=== PATIENT | female | born 1945 | race Caucasian/White ===

== ENCOUNTER 2016-05-09 15:02 | Inpatient (IN) | payer MEDICARE ==
[~2016-05-09] VITALS: Ht 149.9 cm; Wt 67.9 kg
[2016-05-09] VITALS (14 sets, daily range): BP systolic 117–142; BP diastolic 59–77; PULSE 90–104; RESP 16–33; TEMP 98.4; O2SAT 100; Ht 149.9 cm; Wt 67.9 kg
[~2016-05-09 15:02] MED LIST: CHOL200026 PO; LISI1TAB11 PO; PRAV40TA3 PO
--- OUTSIDE RECORDS SUMMARY | 2016-05-09 15:06 | XMS REPORT | Continuity of Care Document ---
Author Author [facility] Organization [facility] Address Unknown Phone Unavailable Support Name Relationship Address Phone FRANK ASKEW MD Caregiver [address] [facility] [address] [place] [address] Unavailable PAT HERRERA APRN Caregiver [address] [place] [address] Unavailable ASYA DUNN Next Of Kin [address] [place] [id number] C Insurance Providers Guarantor Kelli Dunn Address [address] [place] [id number] C Email DENIED/NO TO PORTAL Payer Medicare Policy Number [id number] Subscriber's Name Kelli Dunn Relationship 18 Self Advance Directives Directive Response Recorded Date/Time Dr Ordered Resuscitation Status Full Code 12/31/15 6:30am Resuscitation Documents on File No 12/31/15 7:24am DPOA for Healthcare Only No 12/31/15 7:24am Living Will No 12/31/15 7:24am Problems No problem information available. Medications Current Home Medications Medication Dose Units Route Directions Days Qty Instructions Start Date Cholecalciferol (Vitamin D3) (Vitamin D-3) 2,000 Unit Capsule 1 Cap Oral Daily 12/28/15 Lisinopril/Hydrochlorothiazide (Lisinopril-Hctz 20-12.5 Mg Tab) 1 Each Tablet 1 Tab Oral Daily 90 12/28/15 Pravastatin Sodium 40 Mg Tablet 1 Tab Oral Bedtime 90 12/28/15 Social History Social History Problem Response Recorded Date/Time Onset Date Status Reason for Hospitalization EGD/COLONOSCOPY 12/31/2015 9:10am Not Applicable Not Applicable Chewing Tobacco Status No 12/31/2015 7:29am Not Applicable Not Applicable Hx Substance Use No 12/31/2015 7:29am Not Applicable Not Applicable Has the pt used tobacco in the last 12 months No 12/31/2015 7:29am Not Applicable Not Applicable Query Response Start Date Stop Date Smoking Status Never smoker Hospital Discharge Instructions Instructions: Care Instructions: I was in the hospital because (patient own words): EGD AND COLONOSCOPY Discharge Diet: You may resume your usual diet. Discharge Activity: You may resume your usual activity. Follow Up Appointments: No specific follow-up appointment with Dr. Askew is necessary. You can call his office for any questions or concerns. Pending Lab / Results: Will be notified Patient Instructions: Do not drive, operate machinery, drink alcohol, or sign important papers for 24 hours. Expected Signs/Symptoms: You may have some gas discomfort. Notify Physician If: Contact Dr. Askew if you have a fever over 101 degrees, severe abdominal pain, or severe rectal bleeding. During Business Hours:: During office hours, call Dr. Askew's office at [phone]. After Business Hours:: After hours, please call [facility] at [phone] and have the primer press operator page Dr. Askew the covering physician. Pain Management/Treatment: You should not have significant pain following the procedure. Wound/Incision Care: No wound care required. Condition at time of discharge: Good Plan of Care Discharge Date 12/31/15 9:42am Instructions/Education Provided [facility] Prescriptions See Medication Section Functional Status No functional status results. Allergies, Adverse Reactions, Alerts Allergen Type Severity Reaction Status Last Updated Penicillin Allergy Unknown RASH Active 12/31/15 Morphine Allergy Unknown RASH Active 12/31/15 Codeine Allergy Unknown HALLUCINATIONS Active 12/31/15 Immunizations Query Response on File Recorded Date/Time Hx Influenza Vaccination Y 10/201512/31/15 7:29am Hx Pneumococcal Vaccination Y 201412/31/15 7:29am Hx Influenza Vaccination Y 10/201512/31/15 7:29am Vital Signs Acute Vital Signs Vital Response Date/Time Temperature (Fahrenheit) 97.0 deg F (96.8 - 99.1) 12/31/2015 8:57am Temperature (Calculated Celsius) 36.44829 degrees C (36.0 - 37.3) 12/31/2015 8:57am Temperature Source Temporal 12/31/2015 8:57am Pulse Rate (adult) 72 bpm (60 - 100) 12/31/2015 9:40am Respiratory Rate 22 breaths/min (10 - 20) 12/31/2015 9:40am O2 Sat by Pulse Oximetry 98 % (90 - 100) 12/31/2015 9:40am Oxygen Delivery Method Room Air 12/31/2015 9:40am Oxygen Flow Rate 2.00 L/min 12/31/2015 8:57am Blood Pressure 98/56 mm Hg 12/31/2015 9:40am Blood Pressure Source Automatic Cuff 12/31/2015 9:40am Height (Feet) 4 feet 12/31/2015 7:01am Height (Inches) 11.00 inches 12/31/2015 7:01am Weight (Kilograms) 65.100 kg 12/31/2015 7:01am Body Mass Index (BMI) 29.0 12/31/2015 7:01am Results No known relevant diagnostic tests, laboratory data and/or discharge summary. Procedures Procedure Status Date Provider(s) COMP SCREEN MAMMOGRAM ADD-ON Completed 10/17/15 BREAST TOMOSYNTHESIS BI Completed 10/17/15 [id number]"SCREENING MAMMOGRAPHY, PRODUCING DIRECT DIGITAL IMAGE Completed Colonoscopy Completed 12/31/15 FRANK ASKEW MD Esophagogastroduodenoscopy (EGD) with closed biopsy Completed 12/31/15 FRANK ASKEW MD Encounters Encounter Location Arrival/Admit Date Discharge/Depart Date Attending Provider Departed Surgical Day Care [facility] 12/31/15 6:51am 12/31/15 9: 42am FRANK ASKEW MD Registered Clinic [facility] 10/17/15 8:01am IRLANDA STYLES
[2016-05-09] MEDS ORDERED: CHOL100018 PO (15:20)
[2016-05-09] MEDS ORDERED: FERR-70 PO (15:21)
[2016-05-09] MEDS ORDERED: LACT1CAP80 PO (15:21)
[2016-05-09 15:39] LABS: BASOPHILS % (AUTO) 0.2 % (0-2); EOSINOPHILS # (AUTO) 0.1 T/MM3 (0-0.5); EOSINOPHILS % (AUTO) 0.5 % (0-4); HCT - HEMATOCRIT 20.4 % (36-46); HGB - HEMOGLOBIN 6.4 GM/DL (12-16); IMMATURE GRANULOCYTE # (AUTO) 0.03 T/MM3 (0.00-0.03); IMMATURE GRANULOCYTE % (AUTO) 0.3 % (0.0-0.5); LYMPHOCYTES # (AUTO) 2.2 T/MM3 (1-4.8); LYMPHOCYTES % (AUTO) 19.7 % (23-45); MEAN CORPUSCULAR HGB 28.1 UUG (26-34); MEAN CORPUSCULAR HGB CONC(MCHC 31.4 GM/DL (31-37); MEAN CORPUSCULAR VOLUME 89.5 UM3 (80-100); MEAN PLATELET VOLUME 9.1 UM3 (9.4-12.4); MONOCYTES # (AUTO) 0.4 T/MM3 (0-0.8); NEUTROPHILS #(AUTO)-ABSOLUTE 8.2 T/MM3 (1.8-7.7); NEUTROPHILS % (AUTO) 75.3 % (33-66); RED BLOOD COUNT 2.28 M/MM3 (4.00-5.20); WBC - WHITE BLOOD COUNT 10.9 T/MM3 (4.5-11.0)
[2016-05-09] MEDS ORDERED: NORMAL SALINE 500 ML IV SCH (15:43)
--- NOTE | 2016-05-09 15:49 | ERPDOC ---
Departure Disposition Decision Date: May 09, 2016 Disposition Decision Time: 17:08 Disposition: 02 TO [facility] Impression Impression Impression: Primary Impression: GI bleed Condition: Critical Seen By: Mid-level only Referrals: PAT HERRERA APRN (Family) Problems/Meds/Labs Reviewed?: Yes Medications reviewed and manag: Yes Follow up care ordered?: Yes (admit) Mental Status: Alert, Oriented Critical Care Note Total Time (mins): 15 Critical Care Spent: [id number]-hp-coqh care of pt, Reviewing test results, Discuss the case w/staff, Discussion w/ family/DPOA During this visit the pt was: Critically Ill HPI - Abdominal Pain General Chief Complaint: Nausea,Vomiting,Diarrhea Stated Complaint: VOMITING,DIARRHEA,WEAKNESS Time Seen by Provider: 15:34 Source: patient History/Exam Limitations: no limitations HPI - Abdominal Pain Initial Comments Kelli is a 70 year old female who developed dark diarrhea stools last week with some accompanying stomach cramping. Patient volunteers at preschool and feels like symptoms were consistent with a viral illness. She did have a couple episodes of vomiting at that time. Today, patient redeveloped diarrhea with black stools and vomiting coffee-ground emesis last episode 20 minutes prior to presentation emergency room. Daughter brought patient to the emergency room by private vehicle after going over to her house and finding her to be very pale and weak. Patient underwent colonoscopy and EGD 12/31/[address] Malik [facility]. Findings showed gastritis and esophagitis. Patient was started on omeprazole which she took for 1-2 months but felt like it was causing some looser stools and she discontinued it. Additionally patient has been on iron supplementation but stopped 1 week ago when the stools were noticed to be black. Patient has a history of anemia indicating hemoglobin prior to those scopes was around 11. Patient denies any abdominal pain. Complains of feeling tired and wiped out. Occurred At: home Onset: Getting worse Duration: 1 week Pain Scale: Now: 0/10 Activities at Onset: none Associated Symptoms: fatigue, nausea/vomiting Hx of Similar Symptoms: No Allergies: Coded Allergies: Penicillins (Verified Allergy, Unknown, RASH, 05/09/16) codeine (Verified Allergy, Unknown, HALLUCINATIONS, 05/09/16) morphine (Verified Allergy, Unknown, RASH, 05/09/16) Past History Past Medical History Metabolic: hypertension GI: GERD, gallbladder disease Hematologic: anemia Psychological: anxiety Surgical History General: EGD, appendix, colonoscopy, gallbladder Joint: knee (rt meniscus) Family History Family PMH: FOUND: hypertension Vaccines Hx Influenza Vaccination: Yes (10/2015) Hx Pneumococcal Vaccination: Yes (2014) Social History Smoking Status: Never smoker Does patient use chewing tobac: No Second Hand Exposure: No Substance Use Type: does not use Alcohol Intake: occasionally Marital Status: Household Members: spouse Current Occupational Status: employed Current Occupation: preschool helper Review of Systems Constitutional Constitutional: fatigue, weakness, DENIES: fever ENMT Sinuses: DENIES: congestion Mouth/Throat: DENIES: sore throat Cardiovascular Cardiac: dyspnea on exertion, DENIES: chest pain Pulmonary Respiratory: DENIES: cough GI Upper Abdomen: hematemesis, vomiting, DENIES: pain Lower Abdomen: diarrhea, melena, DENIES: pain General: DENIES: dysuria Musculoskeletal General: DENIES: pain Integumentary Skin: DENIES: rash Neurological General: weakness Psychiatric Psychiatric: anxiety Hematologic/Lymphatic Hematologic/Lymphatic: anemia All other Systems All Other Systems: Reviewed and Negative Physical Exam General General Nourishment: well nourished, well developed, appears stated age, acute distress Vitals and Pain First Documented Vital Signs Date Time Temp Pulse Resp B/P Pulse Ox O2 Delivery O2 Flow Rate FiO2 05/09/16 15:25 98.7 125 20 136/61 100 Room Air Weight: Kilograms: 66.600 Height (feet): 4 Height (inches): 11.00 Triage Pain Scale: Eyes (brief) Eyes Brief: found: PERRL, not found: scleral icterus ENMT (brief) ENMT Brief: FOUND: TM clear, mucosa moist, NOT FOUND: nasal exudate Neck (brief) Neck: FOUND: trachea midline Respiratory (brief) Respiratory: FOUND: clear all vicente, equal bilaterally Cardiovascular (brief) Cardiac: FOUND: murmur, other (tachycardia), peripheral edema (trace) Pulses: all distal extremities Abdomen (brief) Abdominal Brief: FOUND: bowel normo active x4, soft, NOT FOUND: tender Lymphatic (brief) Lymphatic Brief: NOT FOUND: lymphedema Integumentary (brief) Integumentary Brief: FOUND: dry, warm, NOT FOUND: pink (pale), rash Psychiatric (brief) Psychiatric Brief: FOUND: alert, attentive, normal affect, oriented Progress Results/Orders Orders Procedure Category Date Status Time Cbc W/Auto LAB 05/09/16 Complete Diff-Reflex Manual Bmp - Basic Metabolic LAB 05/09/16 Complete Panel 15:43 PTT LAB 05/09/16 Complete 15:43 INR LAB 05/09/16 Complete 15:43 Iv Lock (Ed Only) EDM 05/09/16 Transmitted 15:43 Consent For Procedure JADEN 05/09/16 In Process 15:43 Teach: Transfusion [facility] 05/09/16 In Process Education 15:43 Normal Saline (Ns) PHA 05/09/16 In Process 15:43 Give Packed Cell BBK 05/09/16 Logged 15:43 Packed Cells BBK 05/09/16 In Process Leukoreduced 15:27 Type And Screen BBK 05/09/16 In Process 15:27 Pantoprazole PHA 05/09/16 Complete (Protonix Iv) 16:30 Lab Results Laboratory Tests Test 05/09/16 15:23 White Blood Count 10.9T/MM3 Red Blood Count 2.28M/MM3 Hemoglobin 6.4GM/DL Hematocrit 20.4% Mean Corpuscular Volume 89.5UM3 Mean Corpuscular Hemoglobin 28.1UUG Mean Corpuscular Hemoglobin Concent 31.4GM/DL RDW Standard Deviation 43.8FL Platelet Count 561T/MM3 Mean Platelet Volume 9.1UM3 Immature Granulocyte % (Auto) 0.3% Neutrophils (%) (Auto) 75.3% Lymphocytes (%) (Auto) 19.7% Monocytes (%) (Auto) 4.0% Eosinophils (%) (Auto) 0.5% Basophils (%) (Auto) 0.2% Absolute Immature Granulocyte (auto 0.03T/MM3 Absolute Neutrophils (auto) 8.2T/MM3 Absolute Lymphocytes (auto) 2.2T/MM3 Absolute Monocytes (auto) 0.4T/MM3 Absolute Eosinophils (auto) 0.1T/MM3 Absolute Basophils (auto) 0.0T/MM3 Prothromb Time International Ratio 1.21 Activated Partial Thromboplast Time 23.9SEC Turbidity < 20 Sodium Level 145MEQ/L Potassium Level 4.6MEQ/L Chloride Level 113MEQ/L Carbon Dioxide Level 19MEQ/L Anion Gap 13MEQ/L Blood Urea Nitrogen 42.0MG/DL Creatinine 0.9MG/DL Glomerular Filtration Rate Calc 62 BUN/Creatinine Ratio 47RATIO Glucose Level 200MG/DL Calculated Osmolality 296MOSM/KG Calcium Level 8.6MG/DL Icterus Index < 2 Chemistry Specimen Hemolysis < 15 Medications Current ED Medications Sodium Chloride (NS) 500 ml @ 0 mls/hr Q0M IV ; Start 05/09/16 at 15:43 Pantoprazole Sodium (Protonix Iv) 40 mg O ONCE IV Last administered on t 16:25; Start 05/09/16 at 16:30; Stop 05/09/16 at 16:31; Status DC Progress Progress Called Dr. Ruff regarding patient. Agrees to be consulted for patient if hospitalized Called Dr. Vail from hospitalist service on pt admit. Will admit CCU and consult Speedy Protonix 40 mg IV given in ER, 1 unit blood ordered-it is available in house Consult/PCP Consult/PCP : Physician Contacted: Yared Type of discussion: Admit Discussion/PCP Discussion Details admit ccu RENETTA CHAMBERLAIN APRN May 09, 2016 15:49
[2016-05-09 16:02] LABS: ANION GAP 13 MEQ/L (5-15); BUN/CREATININE RATIO 47 RATIO (6-26); CALCIUM 8.6 MG/DL (8.4-10.2); CHLORIDE 113 MEQ/L (98-107); CO2 - CARBON DIOXIDE 19 MEQ/L (22-30); CREATININE 0.9 MG/DL (0.7-1.2); GLOMERULAR FILTRATION RATE 62; GLUCOSE 200 MG/DL (65-110); POTASSIUM 4.6 MEQ/L (3.6-5); SODIUM 145 MEQ/L (134-144)
[2016-05-09 16:29] LABS: INR 1.21 (0.76-1.04); PROTHROMBIN TIME 13.2 SEC (9.31-12.49); PTT 23.9 SEC (24-36)
[2016-05-09] MEDS ORDERED: PANTOPRAZOLE 40mg INJECTION IV ONE ×2 (16:30→19:15)
[2016-05-09] MEDS ORDERED: NORMAL SALINE 1,000 ML IV ONE (17:00)
--- NOTE | 2016-05-09 17:04 | NUR ---
REPORT REPORT GIVEN TO STANFORD BELTRAN IN CCU
--- NOTE | 2016-05-09 17:14 | NUR ---
INFUSION INFUSION THERAPY AT BEDSIDE FOR IV START ATTEMPT
--- NOTE | 2016-05-09 17:30 | NUR ---
ADMIT PATIENT TAKEN TO CCU BED 1 BY CART, STABLE. BELONGINGS WITH PATIENT.
--- NOTE | 2016-05-09 17:30 | NUR ---
Admit: the patient is admitted to ccu-1. She is alert, oriented x3. She is pale, skin is cool. She states she is dizzy when up. The monitor technician show ST with a rate of 120's.
--- NOTE | 2016-05-09 18:00 | NUR ---
Infusion therapy: is here for midline placement in the right upper arm.
--- NOTE | 2016-05-09 18:18 | NUR ---
Blood #1: is started as ordered. Dr. Vail is at the bedside.
[2016-05-09] MEDS: NORMAL SALINE 1,000 ML IV SCH (18:39)
[2016-05-09] MEDS ORDERED: ONDANSETRON 4mg/2ml INJECTION IV PRN (18:45)
[2016-05-09] MEDS ORDERED: METOCLOPRAMIDE 10mg/2ml INJECTION IV PRN (18:45)
--- NOTE | 2016-05-09 18:45 | NUR ---
Output: 200 cc of clear yellow urine is voided per bedpan.
--- NOTE | 2016-05-09 19:58 | HPPDOC ---
HPI - Adult Date DATE: 05/09/16 TIME: 19:42 General Chief Complaint: severe weakness and black emesis and black stools History of Present Illness The patient is a pleasant 70-year-old female. Chest history of anemia and underwent an EGD and colonoscopy in December [address] Malik. H. pylori testing was negative. Hemoglobin at that time was 9.9. EGD biopsy showed mild chronic mucosal inflammation and reactive epithelial changes. No other abnormalities seen. On EGD there was distal esophagitis and mild antral gastritis colonoscopy was done and showed just a few diverticuli. The patient was placed on iron twice daily but did not take it twice daily because of GI upset. Approximately one week ago the patient had black emesis and black stool. She stopped her iron at that time. Today she noted she was feeling very weak and noticed that her heart was pounding. She then had a large amount of black emesis and black diarrhea. Her daughter encouraged her to come to the emergency room where she was found to have a hemoglobin of 6.4. Initial vitals revealed a heart rate of 125 and blood pressure 136/61. O2 sat was 100%. Dr. Vail was called and asked to admit for anemia and GI bleed. The patient was typed and crossed in the emergency room and given 500 cc of normal saline. She was given 40 mg of IV Protonix. The patient states that she felt weak and lightheaded today. She noticed her heart was racing. She was not having any specific abdominal pain. She states that for a long time she will have occasional cramping when she eats spicy foods or chocolate. When she has crampy abdominal pain she then has a bowel movement and symptoms are gone. She is noticing increased flatus. She has not had any weight changes. She occasionally takes ibuprofen maybe once a week for sinus headache. She is not on any blood thinners. She denies any chest pain or shortness of breath. She felt sweaty last night but otherwise denies any fevers , chills or sweats. States she has been anxious for a long period of time. She does feel anxious and is somewhat tearful tonight. Past Medical History Past Medical History Hypertension GERD anemia Anxiety Hyperlipidemia Torn meniscus right knee for which she has undergone steroid injections Surgical History Patient's Surgical History: EGD showing mild antral gastritis and distal esophagitis 12/31/[address] Malik Colonoscopy 12/31/2015 showing a few diverticuli, otherwise normal with Dr. Malik Appendectomy DANII/BSO Benign breast biopsy Current Medications Home Meds Reported Medications Lactobacillus Combo No.10 (Probiotic) 1 Each Capsule, 1 CAP PO DAILY Y for PRN ORDERS 05/09/16 Ferrous Sulfate (Ferrous Sulfate) 325 Mg Tablet, 325 MG PO BIDWM 05/09/16 Cholecalciferol (Vitamin D3) 1,000 Unit Tablet, 1000 UNIT PO DAILY 05/09/16 Pravastatin Sodium (Pravastatin Sodium) 40 Mg Tablet, 40 MG PO HS 12/28/15 Lisinopril/Hydrochlorothiazide (Lisinopril-Hctz 20-12.5 mg Tab) 1 Each Tablet, 1 TAB PO DAILY, #90 12/28/15 Allergies: Coded Allergies: Penicillins (Verified Allergy, Unknown, RASH, 05/09/16) codeine (Verified Allergy, Unknown, HALLUCINATIONS, 05/09/16) morphine (Verified Allergy, Unknown, RASH, 05/09/16) Family History Family History: Mom with lung cancer-she was a smoker Mother also had diabetes and hypertension. Social History Smoking Status: Never smoker Does patient use chewing tobac: No Second Hand Exposure: No Substance Use Type: does not use Alcohol Intake: occasionally Marital Status: Household Members: spouse Current Occupational Status: employed Current Occupation: preschool helper Advance Directives: No DPOA for Healthcare Only Review of Systems Unable to Obtain Comments Comprehensive review of systems is negative other than the above in history of present illness Physical Exam General Vital Signs Vital Signs Date Time Temp Pulse Resp B/P Pulse Ox O2 Delivery O2 Flow Rate FiO2 05/09/16 18:43 102 16 05/09/16 17:30 98.7 120/59 100 Room Air Height (Feet): 4 Height (Inches): 11.00 Comments Current vitals after receiving 500 cc of normal saline and receiving first unit of blood shows heart rate of 92, blood pressure 142/69, O2 sat about her percent on room air. GEN-alert, mildly anxious and a little tearful, otherwise no acute distress HEENT-sclera anicteric, oropharynx is moist NECK-supple CV-tachycardic rate with irregular rhythm, harsh systolic murmur CHEST-to auscultation from the anterior ABD-soft, nontender, nondistended with positive bowel sounds -no Beal EXT-no edema NEURO-alert and oriented 3, moves all 4 extremities without difficulty SKIN-warm and dry and without rashes Neurologic RN Documented GCS Eye Opening: Verbal: Motor: Total: Laboratory Laboratory Tests Test 05/09/16 15:23 White Blood Count 10.9T/MM3 Red Blood Count 2.28M/MM3 Hemoglobin 6.4GM/DL Hematocrit 20.4% Mean Corpuscular Volume 89.5UM3 Mean Corpuscular Hemoglobin 28.1UUG Mean Corpuscular Hemoglobin Concent 31.4GM/DL RDW Standard Deviation 43.8FL Platelet Count 561T/MM3 Mean Platelet Volume 9.1UM3 Immature Granulocyte % (Auto) 0.3% Neutrophils (%) (Auto) 75.3% Lymphocytes (%) (Auto) 19.7% Monocytes (%) (Auto) 4.0% Eosinophils (%) (Auto) 0.5% Basophils (%) (Auto) 0.2% Absolute Immature Granulocyte (auto 0.03T/MM3 Absolute Neutrophils (auto) 8.2T/MM3 Absolute Lymphocytes (auto) 2.2T/MM3 Absolute Monocytes (auto) 0.4T/MM3 Absolute Eosinophils (auto) 0.1T/MM3 Absolute Basophils (auto) 0.0T/MM3 Prothromb Time International Ratio 1.21 Activated Partial Thromboplast Time 23.9SEC Turbidity < 20 Sodium Level 145MEQ/L Potassium Level 4.6MEQ/L Chloride Level 113MEQ/L Carbon Dioxide Level 19MEQ/L Anion Gap 13MEQ/L Blood Urea Nitrogen 42.0MG/DL Creatinine 0.9MG/DL Glomerular Filtration Rate Calc 62 BUN/Creatinine Ratio 47RATIO Glucose Level 200MG/DL Calculated Osmolality 296MOSM/KG Calcium Level 8.6MG/DL Icterus Index < 2 Chemistry Specimen Hemolysis < 15 Assessment & Plan Assessment Impression Acute blood loss anemia-symptomatic with weakness, lightheadedness and tachycardia Probable upper GI bleed Hypernatremia Metabolic acidosis-mild History of hypertension History of gastritis and GERD Anxiety Plan Admit to CCU. Transfuse 2 units of blood. Stay 2 units ahead. IV fluids to run at 75 ML's an hour after blood is done Protonix 80 mg IV and start Protonix drip Nothing by mouth 2 IVs Hemoglobin every 6 hours to start after second unit of blood is done. Call hemoglobin less than 8.4 I did call and talk with Dr. Gonzalez and he plans for EGD tomorrow, likely in the morning. He can do it more emergently if needed. Preferably will get hemoglobin improved prior to EGD Check iron studies, B-12, folate and hemoglobin A1c SCDs for DVT prophylaxis Hold antihypertensives Greater than 75 minutes of critical care time spent seeing and evaluating the patient and performing H&P today. Patient requests full code. She does not have a DURABLE POWER OF SEISMOGRAPH CHIEF but would want her to be her alternate decision-maker. DVT Prophylaxis: SCD'S Code Status Full Code Hospital Course Summary Disclaimer The hospital course summary below is not to be considered part of the above Progress Note. MALATHI VAIL MD May 09, 2016 19:46
--- NOTE | 2016-05-09 20:46 | NUR ---
Protonix 1915 dose of IV Protonix not given due to dose already received in ED. RN contacted Dr. Willis, telehospitalist, for clarification. Per physician, do not give, just start protonix gtt as ordered.
[2016-05-09] MEDS ORDERED: PANTOPRAZOLE 40mg INJECTION IV SCH (21:00)
[2016-05-09] MEDS: PANTOPRAZOLE 80 MG in NORMAL SALINE 250 ML IV SCH (21:01)
--- NOTE | 2016-05-09 21:22 | NUR ---
Blood #2 2nd unit PRBCs started at this time. Pt educated on s/s of adverse reaction. Pt verbalizes understanding. RN remains at bedside for initial 15 minutes of transfusion. VSS.
[2016-05-10] VITALS (54 sets, daily range): BP systolic 120–164; BP diastolic 25–94; PULSE 69–98; RESP 13–36; TEMP 97.6–99.1; O2SAT 96–100
[2016-05-10 00:33] LABS: HGB - HEMOGLOBIN 8.4 GM/DL (12-16)
[2016-05-10] MEDS: NORMAL SALINE 1,000 ML IV SCH ×2 (00:45→06:01)
--- NOTE | 2016-05-10 01:10 | NUR ---
Labs Morning labs moved to 0600 to accommodate q6 Hgb.
[2016-05-10] MEDS: LORAZEPAM 2 MG/ML INJECTION IV PRN (05:31)
[2016-05-10] MEDS: PANTOPRAZOLE 80 MG in NORMAL SALINE 250 ML IV SCH ×2 (06:02→17:10)
[2016-05-10 06:12] LABS: BASOPHILS % (AUTO) 0.2 % (0-2); EOSINOPHILS # (AUTO) 0.1 T/MM3 (0-0.5); EOSINOPHILS % (AUTO) 0.8 % (0-4); HCT - HEMATOCRIT 23.9 % (36-46); HGB - HEMOGLOBIN 7.8 GM/DL (12-16); IMMATURE GRANULOCYTE # (AUTO) 0.02 T/MM3 (0.00-0.03); IMMATURE GRANULOCYTE % (AUTO) 0.2 % (0.0-0.5); LYMPHOCYTES # (AUTO) 2.5 T/MM3 (1-4.8); LYMPHOCYTES % (AUTO) 29.9 % (23-45); MEAN CORPUSCULAR HGB 29.1 UUG (26-34); MEAN CORPUSCULAR HGB CONC(MCHC 32.6 GM/DL (31-37); MEAN CORPUSCULAR VOLUME 89.2 UM3 (80-100); MEAN PLATELET VOLUME 8.8 UM3 (9.4-12.4); MONOCYTES # (AUTO) 0.6 T/MM3 (0-0.8); MONOCYTES % (AUTO) 7.2 % (0-9.0); NEUTROPHILS #(AUTO)-ABSOLUTE 5.2 T/MM3 (1.8-7.7); NEUTROPHILS % (AUTO) 61.7 % (33-66); RED BLOOD COUNT 2.68 M/MM3 (4.00-5.20); WBC - WHITE BLOOD COUNT 8.5 T/MM3 (4.5-11.0)
--- NOTE | 2016-05-10 06:20 | NUR ---
Hgb 7.8 Hgb reported to physician. No new orders.
[2016-05-10 06:23] LABS: ALBUMIN 2.9 G/DL (3.5-5.0); ALBUMIN/GLOBULIN RATIO 1.3 RATIO (1.1-2.2); ALKALINE PHOSPHATASE 52 U/L (38-126); ALT (SGPT) 29 U/L (9-52); ANION GAP 9 MEQ/L (5-15); AST (SGOT) 18 U/L (14-36); BUN/CREATININE RATIO 35 RATIO (6-26); CALCIUM 8.1 MG/DL (8.4-10.2); CHLORIDE 116 MEQ/L (98-107); CO2 - CARBON DIOXIDE 22 MEQ/L (22-30); CREATININE 0.8 MG/DL (0.7-1.2); GLOMERULAR FILTRATION RATE 71; GLUCOSE 97 MG/DL (65-110); POTASSIUM 3.6 MEQ/L (3.6-5); SODIUM 147 MEQ/L (134-144); TOTAL PROTEIN 5.2 G/DL (6.3-8.2)
--- NOTE | 2016-05-10 06:43 | NUR ---
Shift Summary Pt had difficulty sleeping during the night. Denied need for PRN ativan, however agreed to taking it this morning at 0530. Did not aid pt in getting any sleep. Anxious. NPO through night. Family already at bedside this morning. Pt A&Ox3 and appropriate. 2u PRBCs administered thus far. No visible signs of bleeding to note. VSS. Pt states she feels "much better" than yesterday afternoon.
[2016-05-10 07:40] LABS: HEMOGLOBIN A1C 5.4 % (6.1-7.9)
[2016-05-10] MEDS ORDERED: D5-1/2 NS KCL 20 MEQ 1,000 ML IV SCH (08:00)
--- NOTE | 2016-05-10 09:00 | NUR ---
STATUS Dozed briefly after ativan given earlier this am. Up to BR w/ assist. Steady on feet. AM cares provided. Family at bedside. Patient sleeping soundly now.
--- NOTE | 2016-05-10 10:58 | NUR ---
KIERA QURESHI VISITED PT. CM EXPLAINED ROLE AND PROVIDED CONTACT INFORMATION. 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 PT WILL CONSIDER [facility]. PT IS AWARE TO CONTACT CM IF NEEDS ARISE.
--- NOTE | 2016-05-10 11:35 | ANESPREOP ---
Anesthesia Record Date and Time DATE: 05/10/16 TIME: 11:32 Pre-Op Diagnosis GI bleed Proposed Surgical Procedure EGD NPO since: mn Allergies: Coded Allergies: Penicillins (Verified Allergy, Unknown, RASH, 05/09/16) codeine (Verified Allergy, Unknown, HALLUCINATIONS, 05/09/16) morphine (Verified Allergy, Unknown, RASH, 05/09/16) Ht/Wt/BMI Height: 4 ' 11.00 " Weight: 67.500 kg BMI: 29.4 kg/m2 Vital Signs Date Time Temp Pulse Resp B/P Pulse Ox O2 Delivery O2 Flow Rate FiO2 05/10/16 08:00 81 05/10/16 08:00 98.5 16 131/25 100 Room Air Medications Inpatient Medications Current Medications Medications (Trade) Dose Ordered Sig/Mady Start Time Stop Time Status Last Admin Dose Admin Sodium Chloride 500 ml @ 0 mls/hr Q0M 05/09/16 15:43 Sodium Chloride (Normal Saline IV) 1,000 ml @ 75 mls/hr [id number] 05/09/16 18:39 05/10/16 07:49 DC 05/10/16 06:01 75 MLS/HR Metoclopramide HCl (REGLAN Inj) 5 mg Q6H PRN 05/09/16 18:45 Ondansetron HCl (Zofran) 4 mg Q6H PRN 05/09/16 18:45 Pantoprazole Sodium 40 mg 40 mg BID 05/09/16 21:00 05/09/16 21:00 DC Pantoprazole Sodium/Sodium Chloride (Protonix Iv/NS) 250 ml @ 25 mls/hr Q10H 05/09/16 19:15 05/10/16 06:02 25 MLS/HR Lorazepam 0.25 mg 0.25 mg Q4H PRN 05/09/16 19:15 05/10/16 05:31 0.25 MG Potassium Chloride/Dextrose/ Sod Cl (D5-1/2 NS KCl 20 Meq) 1,000 ml @ 75 mls/hr [id number] 05/10/16 08:00 05/10/16 09:20 75 MLS/HR Cholecalciferol (Vitamin D3) 1,000 Unit Tablet, 1,000 UNIT PO DAILY, (Reported) Last Taken: on 05/07/16 Ferrous Sulfate (Ferrous Sulfate) 325 Mg Tablet, 325 MG PO BIDWM, (Reported) Last Taken: on 05/07/16 Lactobacillus Combo No.10 (Probiotic) 1 Each Capsule, 1 CAP PO DAILY PRN for PRN ORDERS, (Reported) Last Taken: on 05/07/16 Lisinopril/Hydrochlorothiazide (Lisinopril-Hctz 20- 12.5 mg Tab) 1 Each Tablet, 1 TAB PO DAILY, (Reported) Last Taken: on 05/07/16 Pravastatin Sodium (Pravastatin Sodium) 40 Mg Tablet, 40 MG PO HS, (Reported) Last Taken: on 05/07/16 Currently on Beta Emmanuel: No Medical/Surgical History Anesthesia PMH: Reports: *Hypertension, Anxiety, Hyperlipidemia, Reflux, Denies : *Diabetes, *[place], Anesthesia Reactions (NO AIRWAY ISSUES), Asthma, Blood Transfusion Reac, CHF, COPD, CVA/Stroke/TIA, Cancer, Deep Vein Thrombosis, Glaucoma, Malignant Hyperthermia, Pacemaker, Renal Disease, Seizures, Sleep Apnea Smoking Status: Never smoker Use Chewing Tobacco?: No Second Hand Exposure: No Substance Use Type: does not use Alcohol Intake: rarely Past Surgical History Orthopedic Surgeries: No Abdominal Surgeries: Yes - APPY,COLONOSCOPY, EGD Genitourinary Surgeries: No Cardiac Surgeries: No Endocrine Surgeries: No Reproductive Surgeries: Yes - HYST. Neurological Surgeries: No Ear Surgeries: No Nose Surgeries: No Throat Surgeries: No Other Surgeries: Yes - WISDOM TEETH AND ALL TEETH EXTRACTION Anesthesia Adverse Reactions: FOUND none Pertinent Findings Laboratory Tests 05/10/16 05:59 Test 05/09/16 15:23 Activated Partial Thromboplast Time 23.9SEC (24-36) Prothromb Time International Ratio 1.21 (0.76-1.04) EKG Rhythm: Sinus Rhythm Physical Exam Respiratory: Bilat breath sounds equal, Lungs clear Cardiovascular: FOUND Regular rate, rhythm, FOUND No murmur Airway Assessment Mallampati Score: I TMD: 3 Fingerbreadths Neck Extension: Good Teeth: Upper Dentures, Lower Dentures Overall Assessment: No Airway Concerns ASA: 3 Plan Anesthesia Plan: TIVA, GETA, MAC Discussion Discussed risks/options/alternatives of anesthesia and questions answered. Patient consents. Nursing pain assessment noted. Attestation Statement Prior to the delivery of any anesthetic medication, I examined the patient, developed the plan, obtained the patient's consent and discussed the risk and benefits of the procedure with the patient/guardian. FRANK LEWIS CRNA May 10, 2016 11:35
[2016-05-10] MEDS ORDERED: LIDOCAINE VISCOUS 2% Oral Soln 15ml UD ONE (11:46)
[2016-05-10] MEDS ORDERED: [UNRECOGNIZED DRUG - OTHER] TOP ONE (11:46)
[2016-05-10] MEDS ORDERED: BENZOCAINE 20% Top. Anesth. SPRAY UD ONE (11:46)
[2016-05-10] MEDS ORDERED: PROPOFOL 500mg 0 ML IV ONE (11:47)
[2016-05-10] MEDS ORDERED: PROPOFOL 200mg 20 ML IV ONE (11:47)
[2016-05-10] MEDS ORDERED: LIDOCAINE 2% (20mg/ml) 5ml PF SDV ONE ×2 (11:47→11:48)
[2016-05-10] MEDS ORDERED: KETAMINE 500mg/10ml INJECTION ONE (11:48)
--- NOTE | 2016-05-10 11:50 | NUR ---
OR To OR per bed. Family aware.
--- NOTE | 2016-05-10 11:59 | PNPDOC ---
Subjective Date DATE: 05/10/16 TIME: 11:51 Subjective Patient states that she's feeling better. She states that she was anxious and did not sleep very well last night. She did agree to some Ativan around 5 AM and slept a little bit after that. She denies any shortness of breath or palpitations. She states she sat up on a bedside commode and had no lightheadedness. She has had no further vomiting since admission. She's had no further stools. She denies any abdominal pain. She states she did have a little discomfort in her chest for a minute or so and then passed flatus and the pain was gone. The pain in her chest did not radiate anywhere. It was not associated with any shortness of breath, nausea or diaphoresis. She has had no other chest discomfort. Objective Vital Signs Vital signs Vital Signs Date Time Temp Pulse Resp B/P Pulse Ox O2 Delivery O2 Flow Rate FiO2 05/10/16 08:00 81 05/10/16 08:00 98.5 16 131/25 100 Room Air GEN-alert, oriented, no acute distress, alert little less pale HEENT-sclera anicteric NECK-supple CV-regular rate and rhythm, 3/6 systolic murmur-not as harsh as yesterday CHEST-clear to auscultation bilaterally ABD-off, nontender, nondistended with positive bowel sounds -no Beal EXT-no edema NEURO-no focal deficits SKIN-pale, warm and dry with no rashes Height (Feet): 4 Height (Inches): 11.00 Weight (Kilograms): 67.500 Laboratory Laboratory Laboratory Tests 05/09/16 15:23 05/10/16 05:59 Laboratory Tests 05/09/16 15:23 05/10/16 00:26 05/10/16 05:59 Assessment & Plan Assessment 05/10/2016 Impression Acute blood loss anemia-improved post transfusion of 2 units of blood, hemoglobin up to 7.8 Probable upper GI bleed-BUN is trending down. No further hematemesis. EGD this morning. Hypernatremia-mild increase in sodium, change to D5 half-normal Metabolic acidosis-resolved History of hypertension-pressure stable this morning. Lisinopril and hydrochlorothiazide are on hold. History of gastritis and GERD Anxiety-when necessary Ativan Hyperglycemia-A1c is 5.4, elevation was likely secondary to stress Plan Continue in CCU for now-await results of EGD Stay 2 units ahead and blood [place] fluids to D5 half-normal saline 2 new protonic strip Nothing by mouth Continue 2 IVs Hemoglobin every 6 hours to start after second unit of blood is done. Call hemoglobin less than 8.4 iron studies, B-12, folate are pending SCDs for DVT prophylaxis Hold antihypertensives-for now Greater than 35 minutes of critical care time spent seeing and evaluating the patient today. Await results of EGD. Further plan pending results. Code Status Full Code Hospital Course Summary Disclaimer The hospital course summary below is not to be considered part of the above Progress Note. Hospital Course Summary 05/09/2016 Impression Acute blood loss anemia-symptomatic with weakness, lightheadedness and tachycardia Probable upper GI bleed Hypernatremia Metabolic acidosis-mild History of hypertension History of gastritis and GERD Anxiety Plan Admit to CCU. Transfuse 2 units of blood. Stay 2 units ahead. IV fluids to run at 75 ML's an hour after blood is done Protonix 80 mg IV and start Protonix drip Nothing by mouth 2 IVs Hemoglobin every 6 hours to start after second unit of blood is done. Call hemoglobin less than 8.4 I did call and talk with Dr. Gonzalez and he plans for EGD tomorrow, likely in the morning. He can do it more emergently if needed. Preferably will get hemoglobin improved prior to EGD Check iron studies, B-12, folate and hemoglobin A1c SCDs for DVT prophylaxis Hold antihypertensives Greater than 75 minutes of critical care time spent seeing and evaluating the patient and performing H&P today. Patient requests full code. She does not have a DURABLE POWER OF CUSHION FILLER but would want her to be her alternate decision-maker. MALATHI WASHINGTON MD May 10, 2016 11:54
--- NOTE | 2016-05-10 12:20 | NUR ---
OR Patient returned to room postop. Drowsy. Freq cough. Rests on side. VSS.
--- NOTE | 2016-05-10 12:20 | ANESPO ---
Post-Op Note Date 05/10/16 Time: 12:25 Status Pt Participated in Evaluation: Pt participated in person Vital Signs Date Time Temp Pulse Resp B/P Pulse Ox O2 Delivery O2 Flow Rate FiO2 05/10/16 08:00 81 05/10/16 08:00 98.5 16 131/25 100 Room Air Respiratory Function: Airway patent Mental Status: Lethargic Pain Level Intensity: 0 Hydration: IV infusing Complications during Recovery None apparent Follow-Up Instructions Instructions Per Surgeon FRANK LEWIS CRNA May 10, 2016 12:20
--- NOTE | 2016-05-10 12:26 | GSPOSTPROC ---
Immediate Operative Note DATE: 05/10/16 TIME: 12:22 Postop Diagnosis: * Gastritis with multiple gastric ulcerations - no active bleeding * 7 cm sliding hiatal hernia * Acute blood loss anemia secondary to prior upper GI bleed Surgical Procedure: EGD w/Biopsies Surgeon: Carlos ASA: 3 ELVIS HELLER MD May 10, 2016 12:25
--- NOTE | 2016-05-10 12:37 | NUR ---
PACU REPORT REPORT GIVEN TO RUBY VARMA IN CCU. VITALS STABLE, NO AIRWAY CONCERNS AT THIS TIME. OR AND DR. HELLER HAVE GIVEN REPORT TO CCU RN AND FAMILY.
[2016-05-10] MEDS ORDERED: SUCRALFATE 1 G TABLET PO ONE (12:42)
--- NOTE | 2016-05-10 12:45 | NUR ---
STATUS Family in to see patient.
--- NOTE | 2016-05-10 12:55 | CONSF ---
DATE OF CONSULTATION 05/10/16 CONSULTING PHYSICIAN Jewel Gonzalez M.D. REQUESTING PHYSICIAN Hayley Vail M.D. REASON FOR CONSULTATION 1. Coffee-ground emesis and melanotic stools - likely from upper GI bleed. 2. A acute blood loss anemia with hemoglobin of 6.4 yesterday. Hemoglobin has now improved after blood transfusion. RECOMMENDATIONS 1. Now that Kelli has received blood and hemoglobin is above 7, I think it would be reasonable to perform an EGD to investigate for this potential sources of her bleeding such as ongoing gastritis or a distal esophagitis or a new ulcer. 2. I do not think that she needs repeat colonoscopy since that would not explain coffee-ground emesis. 3. Continue PPI. 4. I will call the [facility] to perform EGD later this morning. HISTORY OF PRESENT ILLNESS Kelli is a 70-year-old female patient of Dr. Maxime Malik who has a history of anemia and had undergone EGD and colonoscopy in December [address] Malik. She had a hemoglobin of 9.9 at that point. The EGD had shown mild chronic mucosal inflammation. There had been distal esophagitis and mild antral gastritis. Colonoscopy only showed a few diverticula. The patient's blood on iron but had not been taking it regularly due to GI upset. One week ago on the weekend the patient developed crampy abdominal pain. This was followed by a normal bowel movement. The next day she said that she fell listless and then went to the bathroom and became nauseous. She had coffee-ground emesis and melanotic diarrhea and described both as "jet black." She stopped taking any iron at that point since she thought that it was upsetting her stomach. She thought the change in symptoms may be due to a virus that was going around. Her symptoms subsided so she did not investigate it further. Yesterday she woke up and felt weak. She notes that her heart was racing and she felt horrible. She had another episode of hematemesis with coffee-ground emesis that she thought was about twice as much as her first episode. She had melanotic diarrhea again. She came to the emergency room and was noted to have a hemoglobin of 6.4. She was transfused and admitted under the hospitalist service for additional transfusion of a total of 2 units. Her hemoglobin improved and I was consulted to consider whether EGD should be performed. PAST MEDICAL HISTORY 1. Hypertension. 2. Gastroesophageal reflux disease. 3. Anemia. 4. Anxiety. 5. Hyperlipidemia. 6. Right meniscus tear - treated with steroid injections. PAST SURGICAL HISTORY 1. EGD with biopsy for JESSICA testing, biopsies of the GE junction - 12/31/[address] Maxime Malik. Endoscopy showed distal esophagitis and mild antral gastritis. Pathology showed mild chronic mucosal inflammation and reactive epithelial changes of the distal esophagus but no Tavera's, metaplasia, dysplasia, or neoplasm. 2. Colonoscopy - 12/31/[address] Maxime Malik. Endoscopy revealed a few diverticula but was otherwise normal. Repeat was recommended in ten years. 3. Total abdominal hysterectomy with bilateral salpingo-oophorectomy via a lower midline incision with incidental appendectomy - May [address] Torres. 4. Benign breast biopsy. ALLERGIES Penicillin, codeine, morphine. MEDICATIONS The patient's home medications were reviewed. See admission medical reconciliation. FAMILY HISTORY Mother - lung cancer (smoker), diabetes, hypertension. SOCIAL HISTORY The patient is . She is a never smoker. She drinks alcohol occasionally. 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 She lives with her spouse. REVIEW OF SYSTEMS 10-point review of systems was negative except for history of present illness and the following. GENERAL: She reports some sweats at night. RESPIRATION: She reports a dry cough. PSYCHIATRIC: she has a history of anxiety but no current treatment. PHYSICAL EXAMINATION VITAL SIGNS: Temperature 98.5, pulse 81, blood pressure 131/25, respiratory rate 16, oxygen saturation 100% on room air. GENERAL: The patient is awake and alert in no acute distress. HEENT: Sclerae clear. Extraocular muscles intact. NECK: Supple with a midline trachea. No lymphadenopathy or thyromegaly are noted. HEART: Regular rate and rhythm. LUNGS: Clear to auscultation bilaterally. ABDOMEN: Soft, nontender, nondistended. EXTREMITIES: No clubbing, cyanosis or edema. NEURO: Cranial nerves II-XII are grossly intact. PSYCHIATRIC: Normal mood and affect. LABORATORY DATA Original hemoglobin in the emergency department was 6.4. After transfusion of two units it went up to 8.4 and was 7.8 this morning. INR was 1.21. BUN was 42 on admission and decreased to 28.0. Iron studies are pending. PATIENT EDUCATION The details, risks and benefits of EGD were discussed with the patient. The discussion included but was not limited to bleeding, perforation requiring surgical repair, aspiration, and complications of anesthesia. She voiced understanding and did wish to proceed with surgery. Thank you for allowing me to participate in Kelli's care. [facility] CENTERMarcelo
[2016-05-10 13:23] LABS: HGB - HEMOGLOBIN 7.6 GM/DL (12-16)
--- NOTE | 2016-05-10 13:30 | NUR ---
STATUS Patient drowsy postop. Does respond to stimulation. Falls asleep easily.
--- NOTE | 2016-05-10 14:09 | OPNOTEF ---
DATE OF OPERATION 05/10/2016 SURGEON Jewel Gonzalez M.D. PREOPERATIVE DIAGNOSES 1. Upper GI bleed with coffee-ground emesis. 2. Acute blood loss anemia secondary to #1. POSTOPERATIVE DIAGNOSES 1. Gastritis with multiple gastric ulcerations - no active bleeding. 2. 7 cm sliding hiatal hernia. 3. Acute blood loss anemia secondary to upper GI bleed - stable following transfusion. PROCEDURE EGD with antral biopsy for JESSICA testing and biopsies of the gastric body for histology. ANESTHESIA TIVA ASA CLASS 111. INDICATIONS The patient is a 70-year-old female who had had an EGD and colonoscopy at the end of December. She had had anemia at that time with hemoglobin 9.9 but her hemoglobin decreased to 6.4. She has received blood transfusion and the medical service was requesting a repeat EGD to verify that there was no active bleeding from an upper GI source since the patient had multiple episodes of coffee-ground emesis. FINDINGS There was gastritis involving the proximal stomach in the area where the stomach was sliding through the esophageal hiatus. She had a 7 cm sliding hiatal hernia. She had no irritation of the distal esophagus. The antrum was grossly normal. The duodenum was also normal. DESCRIPTION OF PROCEDURE After informed stent was obtained the patient was taken to the operating room and placed in left lateral decubitus position. IV anesthesia was administered by the anesthesia team. A bite block was inserted. The patient had also received some topical anesthesia of the oropharynx. Olympus video gastroscope was inserted and advanced down to the level of the second portion of the duodenum. The scope was slowly withdrawn examining mucosa circumferentially. The duodenal bulb was normal. The scope was retroflexed in the stomach and the hiatal hernia was noted. The areas of ulceration in the stomach had been observed in the area of the esophageal hiatus within the gastric body. A biopsy was taken of the antrum for JESSICA testing given the presence of the ulcerations. Biopsies of the ulcerated and irritated areas were also obtained and were sent to pathology for analysis. The sites were inspected for hemostasis. The GE junction had been inspected and there was no irritation of the distal esophagus or the remainder of the esophagus as the scope was removed. RECOMMENDATIONS 1. Add Carafate with meals and at bedtime for two months. 2. Continue PPI for at least two months. . 3. Consider repeat upper endoscopy to verify healing prior to discontinuation of medications. MTDD
--- NOTE | 2016-05-10 15:00 | NUR ---
ELIM Up to BR w/ assist. Steady on feet. Up in chair. Takes clear liquids w/o difficulty.
[2016-05-10] MEDS: SUCRALFATE 1 G TABLET PO SCH ×2 (17:12→21:28)
--- NOTE | 2016-05-10 18:30 | NUR ---
STATUS Patient dozes at short intervals. Denies discomfort. VSS.
[2016-05-10] MEDS ORDERED: MELATONIN 5 MG TABLET PO SCH (20:00)
--- NOTE | 2016-05-10 20:30 | NUR ---
Family Pt's , daughter, son, and a couple of grandchildren up to see patient at this time. Prior to arrival, pt used the restroom and then preferred to sit up in the recliner. Minimal assistance is needed. Pt denies pain or discomforts.
[2016-05-11] VITALS (43 sets, daily range): BP systolic 110–157; BP diastolic 60–85; PULSE 60–90; RESP 12–36; TEMP 96.7–98.2; O2SAT 89–100
[2016-05-11 00:50] LABS: HGB - HEMOGLOBIN 7.2 GM/DL (12-16)
[2016-05-11] MEDS: LORAZEPAM 2 MG/ML INJECTION IV PRN (01:46)
[2016-05-11] MEDS ORDERED: NORMAL SALINE 500 ML IV SCH (01:54)
--- NOTE | 2016-05-11 01:55 | NUR ---
Pt is having trouble sleeping. Ativan 0.25mg given IV.
[2016-05-11] MEDS: PANTOPRAZOLE 80 MG in NORMAL SALINE 250 ML IV SCH ×2 (05:22→11:15)
[2016-05-11] MEDS: SUCRALFATE 1 G TABLET PO SCH ×4 (07:08→20:48)
[2016-05-11 07:19] LABS: BASOPHILS % (AUTO) 0.2 % (0-2); EOSINOPHILS # (AUTO) 0.2 T/MM3 (0-0.5); EOSINOPHILS % (AUTO) 3.5 % (0-4); HCT - HEMATOCRIT 26.9 % (36-46); HGB - HEMOGLOBIN 8.8 GM/DL (12-16); IMMATURE GRANULOCYTE # (AUTO) 0.01 T/MM3 (0.00-0.03); IMMATURE GRANULOCYTE % (AUTO) 0.2 % (0.0-0.5); LYMPHOCYTES # (AUTO) 1.9 T/MM3 (1-4.8); LYMPHOCYTES % (AUTO) 35.9 % (23-45); MEAN CORPUSCULAR HGB 29.3 UUG (26-34); MEAN CORPUSCULAR HGB CONC(MCHC 32.7 GM/DL (31-37); MEAN CORPUSCULAR VOLUME 89.7 UM3 (80-100); MEAN PLATELET VOLUME 9.2 UM3 (9.4-12.4); MONOCYTES # (AUTO) 0.4 T/MM3 (0-0.8); MONOCYTES % (AUTO) 7.4 % (0-9.0); NEUTROPHILS #(AUTO)-ABSOLUTE 2.9 T/MM3 (1.8-7.7); NEUTROPHILS % (AUTO) 52.8 % (33-66); WBC - WHITE BLOOD COUNT 5.4 T/MM3 (4.5-11.0)
--- NOTE | 2016-05-11 07:53 | NUR ---
Shift Summary Pt slept off and on during the night. Hgb dropped. 1unit PRBCs infused. Pt denies pain and discomforts. VSS. Up to restroom with minimal assist. Pt discouraged that her hgb dropped and required more blood. Support, encouragement, and education provided.
--- NOTE | 2016-05-11 08:00 | NUR ---
STATUS Up to BR. AM cares provided. Denies discomfort. Patient reports she is hungry. Sleeps at present.
[2016-05-11] MEDS ORDERED: LACTOBACILLUS (15B cfu) CAPSULE PO PRN (12:00)
[2016-05-11 12:47] LABS: HGB - HEMOGLOBIN 9.2 GM/DL (12-16)
[2016-05-11 12:55] LABS: ANION GAP 9 MEQ/L (5-15); BUN/CREATININE RATIO 12 RATIO (6-26); CALCIUM 8.8 MG/DL (8.4-10.2); CHLORIDE 115 MEQ/L (98-107); CO2 - CARBON DIOXIDE 22 MEQ/L (22-30); CREATININE 0.9 MG/DL (0.7-1.2); GLOMERULAR FILTRATION RATE 62; GLUCOSE 102 MG/DL (65-110); POTASSIUM 3.8 MEQ/L (3.6-5); SODIUM 146 MEQ/L (134-144)
--- NOTE | 2016-05-11 13:00 | NUR ---
STATUS Up in chair for meals. Denies discomfort. Anxious for possible increased diet. Awaiting doctor's visits.
[2016-05-11] MEDS: CETIRIZINE 10 MG TABLET PO SCH (13:25)
--- NOTE | 2016-05-11 16:45 | NUR ---
TRANSFER PT TRANSFERRED TO ROOM 138 AT THIS TIME VIA WHEELCHAIR FROM CCU. PT REPOSITIONED SELF IN CHAIR FOR DINNER. VITAL SIGNS STABLE UPON TRANSFER ON ROOM AIR. PT DENIES PAIN. PT ASSISTED TO BATHROOM UPON TRANSFER. CHAIR ALARM ON. WILL CONTINUE TO MONITOR CLOSELY.
--- NOTE | 2016-05-11 16:45 | NUR ---
TRANSFER Patient transferred to Rm. 138 per orders. Patient a/o, up in chair and denies discomfort.
[2016-05-11] MEDS: FERROUS SULFATE 324 MG TABLET PO SCH (16:53)
--- NOTE | 2016-05-11 17:12 | PNF ---
DATE OF VISIT 05/11/2016 REASON FOR VISIT Follow GI bleed. SUBJECTIVE Kelli denies any abdominal pain. She had had a hemoglobin of 7.2 and was transfused 1 unit of blood. Her hemoglobin responded appropriately up to 8.8 and last recheck was 9.2. OBJECTIVE VITAL SIGNS: Temperature 97.9, pulse 69, blood pressure 130/70, respiratory rate 29, oxygen saturation 99% on room air. GENERAL: The patient is awake and alert, in no acute distress. She is seated in the chair. ABDOMEN: Soft, nontender, nondistended. HEART: Regular rate and rhythm. LUNGS: Clear to auscultation bilaterally. LABORATORY DATA Hemoglobin trend since endoscopy was 7.6, 8.0., 7.2 (1 unit of blood ordered), 8.8, 9.2. ASSESSMENT 1. Gastritis with gastric ulcerations--no evidence of active bleeding. 2. Acute blood loss anemia secondary to prior bleeding from gastric ulcers--hemoglobin fairly stable following most recent transfusion. RECOMMENDATIONS 1. Continue to follow hemoglobin trend. 2. Continue PPI and Carafate. 3. I think it would be fine to advance her to a regular diet. 4. Okay for transfer to the floor from a surgery standpoint. KELSEY
[2016-05-11] MEDS: PANTOPRAZOLE 40mg INJECTION IV SCH (20:49)
[2016-05-11] MEDS ORDERED: PRAVASTATIN 40 MG TABLET PO SCH (22:00)
[2016-05-11] MEDS ORDERED: MIRTAZAPINE 15 MG TABLET PO SCH (22:00)
[2016-05-12 02:55] LABS: FOLATE 13.7 NG/ML (2.76-20)
[2016-05-12 04:13] VITALS: BP 137/81; PULSE 70; RESP 10; TEMP 96.7
[2016-05-12 05:12] LABS: BASOPHILS % (AUTO) 0.2 % (0-2); EOSINOPHILS # (AUTO) 0.2 T/MM3 (0-0.5); EOSINOPHILS % (AUTO) 3.5 % (0-4); HCT - HEMATOCRIT 26.7 % (36-46); HGB - HEMOGLOBIN 8.8 GM/DL (12-16); IMMATURE GRANULOCYTE # (AUTO) 0.01 T/MM3 (0.00-0.03); IMMATURE GRANULOCYTE % (AUTO) 0.2 % (0.0-0.5); LYMPHOCYTES # (AUTO) 1.6 T/MM3 (1-4.8); LYMPHOCYTES % (AUTO) 30.7 % (23-45); MEAN CORPUSCULAR HGB 29.3 UUG (26-34); MEAN PLATELET VOLUME 9.6 UM3 (9.4-12.4); MONOCYTES # (AUTO) 0.5 T/MM3 (0-0.8); MONOCYTES % (AUTO) 8.7 % (0-9.0); NEUTROPHILS #(AUTO)-ABSOLUTE 2.9 T/MM3 (1.8-7.7); NEUTROPHILS % (AUTO) 56.7 % (33-66); WBC - WHITE BLOOD COUNT 5.2 T/MM3 (4.5-11.0)
[2016-05-12 05:19] LABS: ANION GAP 10 MEQ/L (5-15); BUN/CREATININE RATIO 15 RATIO (6-26); CALCIUM 8.5 MG/DL (8.4-10.2); CHLORIDE 115 MEQ/L (98-107); CO2 - CARBON DIOXIDE 22 MEQ/L (22-30); CREATININE 0.8 MG/DL (0.7-1.2); GLOMERULAR FILTRATION RATE 71; GLUCOSE 102 MG/DL (65-110); POTASSIUM 3.4 MEQ/L (3.6-5); SODIUM 147 MEQ/L (134-144)
[2016-05-12] MEDS: SUCRALFATE 1 G TABLET PO SCH ×2 (05:50→12:21)
--- NOTE | 2016-05-12 06:26 | NUR ---
SUMMARY PT SLEPT WELL THIS SHIFT. ALERT AND ORIENTED X3. DENIED ANY PAIN THIS SHIFT. NO PRN MED GIVEN THIS SHIFT. NO BLOODY BM THIS SHIFT. PT HAS BEEN UP SEVERAL TIMES WITH ASSISTANCE TO USE THE BATHROOM. GAIT STEADY. PT WAS EDUCATED ABOUT THE USE OF CALL LIGHT WHEN SHE NEED TO GO TO THE BATHROOM. +1 EDEMA ON THE EXTREMITIES.
[2016-05-12 08:00] VITALS: BP 130/73; PULSE 74; RESP 18; TEMP 96.5; O2SAT 96
[2016-05-12] MEDS: CETIRIZINE 10 MG TABLET PO SCH (08:38)
[2016-05-12] MEDS: FERROUS SULFATE 324 MG TABLET PO SCH (08:39)
[2016-05-12] MEDS: PANTOPRAZOLE 40mg INJECTION IV SCH (08:40)
[2016-05-12] MEDS ORDERED: ASCORBIC ACID 500 MG TABLET PO SCH (09:00)
[2016-05-12] MEDS ORDERED: POTASSIUM CHLORIDE 20 MEQ TABLET PO ONE (09:00)
[2016-05-12] MEDS ORDERED: CHOLECALCIFEROL 1,000 UNIT TABLET PO SCH (09:00)
[2016-05-12] MEDS ORDERED: CYANOCOBALAMIN (B-12) 1000mcg/ml INJECTION SQ SCH (09:00)
--- NOTE | 2016-05-12 09:53 | PNPDOC ---
Subjective Date DATE: 05/12/16 TIME: 09:44 Subjective Kelli feels much better today, and her , Robbin, comments that she looks significantly better. She was eating breakfast when I stopped in to visit. She denies any n/v or abdominal discomfort. She comments that she slept really well last night with the Remeron (at home she has issues with insomnia). She denies weakness, lightheadedness, or dizziness, and has been ambulating well. Both the patient and her feel safe to go home. She has not yet had a bowel movement. Objective Vital Signs Vital signs Vital Signs Date Time Temp Pulse Resp B/P Pulse Ox O2 Delivery O2 Flow Rate FiO2 05/12/16 04:13 96.7 70 10 137/81 Room Air 05/11/16 23:07 96 Height (Feet): 4 Height (Inches): 11.00 Weight (Kilograms): 66.500 General General Appearance: Alert, Orientated x 3, Well Nourished, Well Developed, No Acute Distress Eyes (Brief) Eyes: FOUND: PERRL, NOT FOUND: scleral icterus ENMT (Brief) ENMT: FOUND: mucosa moist, NOT FOUND: pharnyx erythema Respiratory (Brief) Respiratory: FOUND: clear all vicente, equal bilaterally Cardiovascular (Brief) Cardiac: FOUND: murmur, regular rate, regular rhythm Abdomen (Brief) Abdominal: FOUND: BS normo active x4, soft, NOT FOUND: distended Extremities (Brief) Extremity : Side: Bilateral Extremity Finding: NOT FOUND: edema Musculoskeletal (Brief) Musculoskeletal: NOT FOUND: deformity, tenderness Integumentary (Brief) Integumentary: FOUND: dry, pink, warm Psychiatric (Brief) Psychiatric: FOUND: alert, attentive, normal affect, oriented Laboratory Laboratory Laboratory Tests 05/11/16 12:40 05/12/16 04:05 Laboratory Tests 05/10/16 13:15 05/10/16 18:26 05/11/16 00:43 05/11/16 06:39 05/11/16 12:40 05/12/16 04:05 Microbiology Microbiology Microbiology Date/Time Source Procedure Growth Status 05/10/16 12:08 Gastric Biopsy Helicobacter pylori Rapid Urease - Final Complete Assessment & Plan Assessment Acute blood loss anemia-improved post transfusion of 3 units of blood, hemoglobin up to8.8 GI bleed-secondary to ulcers; History of gastritis and GERD Hypernatremia-mild increase in sodium Hypokalemia-mild Metabolic acidosis-resolved History of hypertension-pressure stable this morning. Lisinopril and hydrochlorothiazide are on hold Anxiety-when necessary Ativan Hyperglycemia-A1c is 5.4, elevation was likely secondary to stress Plan/Intensity of Service Discussed importance of avoiding NSAIDS, ASA, EtOH, tobacco. Reviewed labs and plans to replace B12 and continuing on iron. She asked about continuing D3, and we discussed the importance of calcium + D especially on a PPI. With hypernatremia, we may want to hold HCTZ for a few days - will discuss with Dr. Vail. Possible discharge later today. DVT Prophylaxis: SCD'S Code Status Full Code Hospital Course Summary Disclaimer The hospital course summary below is not to be considered part of the above Progress Note. Hospital Course Summary 05/09/2016 Impression Acute blood loss anemia-symptomatic with weakness, lightheadedness and tachycardia Probable upper GI bleed Hypernatremia Metabolic acidosis-mild History of hypertension History of gastritis and GERD Anxiety Plan Admit to CCU. Transfuse 2 units of blood. Stay 2 units ahead. IV fluids to run at 75 ML's an hour after blood is done Protonix 80 mg IV and start Protonix drip Nothing by mouth 2 IVs Hemoglobin every 6 hours to start after second unit of blood is done. Call hemoglobin less than 8.4 I did call and talk with Dr. Gonzalez and he plans for EGD tomorrow, likely in the morning. He can do it more emergently if needed. Preferably will get hemoglobin improved prior to EGD Check iron studies, B-12, folate and hemoglobin A1c SCDs for DVT prophylaxis Hold antihypertensives Greater than 75 minutes of critical care time spent seeing and evaluating the patient and performing H&P today. Patient requests full code. She does not have a DURABLE POWER OF [employer]ION [employer] but would want her to be her alternate decision-maker. 05/10/16 Continue in CCU for now-await results of EGD Stay 2 units ahead and blood D5 half-normal saline Nothing by mouth Hemoglobin every 6 hours to start after second unit of blood is done. Call hemoglobin less than 8.4 SCDs for DVT prophylaxis Hold antihypertensives-for now 05/11/16 Transfer to medical floor Cont PPI + Carafate Advance diet 05/12/16 Discussed importance of avoiding NSAIDS, ASA, EtOH, tobacco. Reviewed labs and plans to replace B12 and continuing on iron. She asked about continuing D3, and we discussed the importance of calcium + D especially on a PPI. With hypernatremia, we may want to hold HCTZ for a few days - will discuss with Dr. Vail. Possible discharge later today. GELY CHONG APRN May 12, 2016 09:47
--- NOTE | 2016-05-12 11:41 | NUR ---
CM CM VISITED PT AND FAMILY. PT PLANS TO RETURN HOME POST STAY AT [facility] [place]. PT DENIES NEEDS. PT IS AWARE TO CONTACT CM IF NEEDS ARISE.
[2016-05-12 12:12] VITALS: BP 135/79; PULSE 76; RESP 16; TEMP 97.3; O2SAT 98
[2016-05-12] MEDS ORDERED: CYAN10009 PO (14:20)
[2016-05-12] MEDS ORDERED: PANT40TA PO (14:20)
[2016-05-12] MEDS ORDERED: ASCO500T9 PO (14:20)
[2016-05-12] MEDS ORDERED: MIRT15TA6 PO (14:20)
[2016-05-12] MEDS ORDERED: SUCR1TAB20 PO (14:20)
--- NOTE | 2016-05-12 14:24 | DSPDOC ---
CASTILLO,GELY Marcelo PERFORATOR TYPIST 05/12/16 1247: General Date Date DATE: 05/12/16 TIME: 12:43 Attending Physician Hayley Vail MD Admitting Physician Hayley Vail MD Consulting Physician Elvis Gonzalez MD Admitting Diagnosis Acute GI bleed Discharge Diagnosis Gastritis with multiple gastric ulcerations - no active bleeding Blood loss anemia - stable Hypernatremia - hold HCTZ Procedures DATE OF OPERATION 05/10/2016 SURGEON Elvis Gonzalez M.D. PREOPERATIVE DIAGNOSES 1. Upper GI bleed with coffee-ground emesis. 2. Acute blood loss anemia secondary to #1. POSTOPERATIVE DIAGNOSES 1. Gastritis with multiple gastric ulcerations - no active bleeding. 2. 7 cm sliding hiatal hernia. 3. Acute blood loss anemia secondary to upper GI bleed - stable following transfusion. PROCEDURE EGD with antral biopsy for JESSICA testing and biopsies of the gastric body for histology. Laboratory Laboratory Tests Test 05/11/16 06:39 05/11/16 12:40 05/12/16 04:05 White Blood Count 5.4T/MM3 (4.5-11.0) 5.2T/MM3 (4.5-11.0) Red Blood Count 3.00M/MM3 (4.00-5.20) 3.00M/MM3 (4.00-5.20) Hemoglobin 8.8GM/DL (12-16) 9.2GM/DL (12-16) 8.8GM/DL (12-16) Hematocrit 26.9% (36-46) 26.7% (36-46) Mean Corpuscular Volume 89.7UM3 (80-100) 89.0UM3 (80-100) Mean Corpuscular Hemoglobin 29.3UUG (26-34) 29.3UUG (26-34) Mean Corpuscular Hemoglobin Concent 32.7GM/DL (31-37) 33.0GM/DL (31-37) RDW Standard Deviation 43.9FL (36.9-50.2) 43.1FL (36.9-50.2) Platelet Count 290T/MM3 (130-400) 296T/MM3 (130-400) Mean Platelet Volume 9.2UM3 (9.4-12.4) 9.6UM3 (9.4-12.4) Immature Granulocyte % (Auto) 0.2% (0.0-0.5) 0.2% (0.0-0.5) Neutrophils (%) (Auto) 52.8% (33-66) 56.7% (33-66) Lymphocytes (%) (Auto) 35.9% (23-45) 30.7% (23-45) Monocytes (%) (Auto) 7.4% (0-9.0) 8.7% (0-9.0) Eosinophils (%) (Auto) 3.5% (0-4) 3.5% (0-4) Basophils (%) (Auto) 0.2% (0-2) 0.2% (0-2) Absolute Immature Granulocyte (auto 0.01T/MM3 (0.00-0.03) 0.01T/MM3 (0.00-0.03) Absolute Neutrophils (auto) 2.9T/MM3 (1.8-7.7) 2.9T/MM3 (1.8-7.7) Absolute Lymphocytes (auto) 1.9T/MM3 (1-4.8) 1.6T/MM3 (1-4.8) Absolute Monocytes (auto) 0.4T/MM3 (0-0.8) 0.5T/MM3 (0-0.8) Absolute Eosinophils (auto) 0.2T/MM3 (0-0.5) 0.2T/MM3 (0-0.5) Absolute Basophils (auto) 0.0T/MM3 (0-0.2) 0.0T/MM3 (0-0.2) Turbidity < 20 (0-20) < 20 (0-20) Sodium Level 146MEQ/L (134-144) 147MEQ/L (134-144) Potassium Level 3.8MEQ/L (3.6-5) 3.4MEQ/L (3.6-5) Chloride Level 115MEQ/L (98-107) 115MEQ/L (98-107) Carbon Dioxide Level 22MEQ/L (22-30) 22MEQ/L (22-30) Anion Gap 9MEQ/L (5-15) 10MEQ/L (5-15) Blood Urea Nitrogen 11.0MG/DL (7-17) 12.0MG/DL (7-17) Creatinine 0.9MG/DL (0.7-1.2) 0.8MG/DL (0.7-1.2) Glomerular Filtration Rate Calc 62 71 BUN/Creatinine Ratio 12RATIO (6-26) 15RATIO (6-26) Glucose Level 102MG/DL (65-110) 102MG/DL (65-110) Calculated Osmolality 280MOSM/KG (261-280) 282MOSM/KG (261-280) Calcium Level 8.8MG/DL (8.4-10.2) 8.5MG/DL (8.4-10.2) Icterus Index < 2 (0-7) < 2 (0-7) Chemistry Specimen Hemolysis < 15 (0-25) < 15 (0-25) Microbiology Microbiology Date/Time Source Procedure Growth Status 05/10/16 12:08 Gastric Biopsy Helicobacter pylori Rapid Urease - Final Complete History of Present Illness The patient is a pleasant 70-year-old female. Chest history of anemia and underwent an EGD and colonoscopy in December [address] Malik. H. pylori testing was negative. Hemoglobin at that time was 9.9. EGD biopsy showed mild chronic mucosal inflammation and reactive epithelial changes. No other abnormalities seen. On EGD there was distal esophagitis and mild antral gastritis colonoscopy was done and showed just a few diverticuli. The patient was placed on iron twice daily but did not take it twice daily because of GI upset. Approximately one week ago the patient had black emesis and black stool. She stopped her iron at that time. Today she noted she was feeling very weak and noticed that her heart was pounding. She then had a large amount of black emesis and black diarrhea. Her daughter encouraged her to come to the emergency room where she was found to have a hemoglobin of 6.4. Initial vitals revealed a heart rate of 125 and blood pressure 136/61. O2 sat was 100%. Dr. Vail was called and asked to admit for anemia and GI bleed. The patient was typed and crossed in the emergency room and given 500 cc of normal saline. She was given 40 mg of IV Protonix. The patient states that she felt weak and lightheaded today. She noticed her heart was racing. She was not having any specific abdominal pain. She states that for a long time she will have occasional cramping when she eats spicy foods or chocolate. When she has crampy abdominal pain she then has a bowel movement and symptoms are gone. She is noticing increased flatus. She has not had any weight changes. She occasionally takes ibuprofen maybe once a week for sinus headache. She is not on any blood thinners. She denies any chest pain or shortness of breath. She felt sweaty last night but otherwise denies any fevers , chills or sweats. States she has been anxious for a long period of time. She does feel anxious and is somewhat tearful tonight. Hospital Course 05/09/2016: ADMITTED to CCU for GI bleed and symptomatic ABLA (hgb 6.4). She was transfused 2 units of PRBC. IV Protonix was initiated and she was NPO. Hgb were trended. Antihypertensives were held. Dr. Gonzalez was consulted. 05/10/16: EGD per Dr. Gonzalez - gastritis with ulcers, no active bleed. Hgb trends 7-8. IVF changed to D5 1/2 NS for mild hypernatremia. 05/11/16: Transferred to medical floor. Hgb down to 7.2 and she was transfused another unit. Diet was advanced; continued PPI + Carafate 05/12/16: DISCHARGE HOME with , stable. Discussed importance of avoiding NSAIDS, ASA, EtOH, tobacco. Reviewed labs and plans to replace B12 and continuing on iron. She asked about continuing D3, and we discussed the importance of calcium + D especially on a PPI. With hypernatremia, encourage oral intake. Resume HCTZ/lisinopril. Rx: Carafate, Protonix BID, Ferrous sulfate, Vit. C, Vit B12. Repeat CBC and BMP by 05/16/16. F/U with Dr. Malik within 1 week. Problems: (1) Gastric ulcer Status: Acute (2) Gastritis Status: Acute Code Status Full Code Home Meds Active Scripts Cyanocobalamin (Vitamin B-12) (Vitamin B-12) 1,000 Mcg Tablet, 1 TAB PO DAILY, # 30 TAB 0 Refills Prov:GELY CHONG APRN 05/12/16 Pantoprazole Sodium (Protonix) 40 Mg Tablet.dr, 40 MG PO BID for ACID REFLUX, # 60 TAB Take 1 tablet, by mouth, 2 times a day before Breakfast and Dinner. Prov:GELY CHONG Marcelo PERFORATOR TYPIST 05/12/16 Ascorbic Acid (Vitamin C) 500 Mg Tablet, 500 MG PO DAILY for 30 Days, #30 TAB Prov:CASTILLOGELY ALVAREZ PERFORATOR TYPIST 05/12/16 Sucralfate (Carafate) 1 Gm Tablet, 1 G PO ACHS, #84 TAB Prov:CASTILLOGELY ALVAREZ PERFORATOR TYPIST 05/12/16 Mirtazapine (Mirtazapine) 15 Mg Tablet, 15 MG PO HS, #30 TAB Prov:CASTILLOTHADDEUSGELY D PERFORATOR TYPIST 05/12/16 Reported Medications Lactobacillus Combo No.10 (Probiotic) 1 Each Capsule, 1 CAP PO DAILY Y for PRN ORDERS 05/09/16 Ferrous Sulfate (Ferrous Sulfate) 325 Mg Tablet, 325 MG PO BIDWM 05/09/16 Cholecalciferol (Vitamin D3) 1,000 Unit Tablet, 1000 UNIT PO DAILY 05/09/16 Pravastatin Sodium (Pravastatin Sodium) 40 Mg Tablet, 40 MG PO HS 12/28/15 Lisinopril/Hydrochlorothiazide (Lisinopril-Hctz 20-12.5 mg Tab) 1 Each Tablet, 1 TAB PO DAILY, #90 12/28/15 Face to Face Encounter I met with patient and her spouse on the day of dismissal and discussed follow up appointments, medications, and safety plan. Discharge Disposition Home Copies To 1: ELVIS GONZALEZ MD; PAT HERRERA PERFORATOR TYPIST Documentation Requirements Documenting Diagnosis Anemia Outpatient Surgery - Inpatient Comments Time spent in DC: 35 min. Anemia Anemia Etiology: Blood Loss Anemia Acuity: Acute HAYLEY VAIL MD 05/12/16 2005: Hospital Course 05/12/2016-I reviewed this chart, the patient history, and the PERFORATOR TYPIST's/PA's documented findings as above. We discussed and formulated the assessment and plan as above with the additions below.-Dr. Vail The patient is feeling well today. She is eating without difficulties. She denies any abdominal pain. She denies any chest pain or shortness of breath. Her hemoglobin has been stable. She is tolerating Remeron without difficulties. [facility] she is alert and oriented 3 and in no acute distress. Chest is clear to auscultation. Cardiovascular reveals a regular rate and rhythm. Abdomen is soft and nontender. Extremities are free of edema. Agree with dismissal to home with close follow-up. Recommend CBC and basic metabolic profile later this week at her primary care physician's office. I did call and discuss hospital findings and discharge plans with Dr. Malik. Dr. Gonzalez recommended a repeat EGD in approximately 3 months which can be performed by Dr. Malik. She should've had Remshiela listed in her discharge medications. She is to take 15 mg by mouth daily at bedtime. We will call her tomorrow and let her know and call this out to her pharmacy. Problems: Home Meds Active Scripts Cyanocobalamin (Vitamin B-12) (Vitamin B-12) 1,000 Mcg Tablet, 1 TAB PO DAILY, # 30 TAB 0 Refills Prov:GELY CHONG APRN 05/12/16 Pantoprazole Sodium (Protonix) 40 Mg Tablet.dr, 40 MG PO BID for ACID REFLUX, # 60 TAB Take 1 tablet, by mouth, 2 times a day before Breakfast and Dinner. Prov:GELY CHONG PERFORATOR TYPIST 05/12/16 Ascorbic Acid (Vitamin C) 500 Mg Tablet, 500 MG PO DAILY for 30 Days, #30 TAB Prov:GELY CHONG APRN 05/12/16 Sucralfate (Carafate) 1 Gm Tablet, 1 G PO ACHS, #84 TAB Prov:GELY CHONG PERFORATOR TYPIST 05/12/16 Mirtazapine (Mirtazapine) 15 Mg Tablet, 15 MG PO HS, #30 TAB Prov:GELY CHONG PERFORATOR TYPIST 05/12/16 Reported Medications Lactobacillus Combo No.10 (Probiotic) 1 Each Capsule, 1 CAP PO DAILY Y for PRN ORDERS 05/09/16 Ferrous Sulfate (Ferrous Sulfate) 325 Mg Tablet, 325 MG PO BIDWM 05/09/16 Cholecalciferol (Vitamin D3) 1,000 Unit Tablet, 1000 UNIT PO DAILY 05/09/16 Pravastatin Sodium (Pravastatin Sodium) 40 Mg Tablet, 40 MG PO HS 12/28/15 Lisinopril/Hydrochlorothiazide (Lisinopril-Hctz 20-12.5 mg Tab) 1 Each Tablet, 1 TAB PO DAILY, #90 12/28/15 Copies To 1: ELVIS GONZALEZ MD; PAT HERRERA APRN, KAREN D APRN May 12, 2016 12:47 HAYLEY VAIL MD May 12, 2016 20:05
--- NOTE | 2016-05-12 14:45 | NUR ---
status/ DC Pt A/O x3, V/S stable on RA. Pt ambulating well, denies dizziness or SOA. Pt denies pain and no PRN meds given. IV sites taken out, cath tips intact. Waiting for to come back and will give instructions then, bringing clothes.
--- NOTE | 2016-05-12 14:54 | NUR ---
Scripts called in to [facility].
[2016-05-12 16:03] VITALS: BP 141/80; PULSE 66; RESP 18; TEMP 96.7; O2SAT 98
--- NOTE | 2016-05-12 16:40 | NUR ---
DC here to garbage pick up worker, pt dressed and DC instructions given. No questions at this time. Taken to front door via WC
[2016-05-13] MEDS ORDERED: FERROUS SULFATE 324 MG TABLET PO SCH (08:00)
== END 2016-05-12 15:45 | disposition home or self-care (01) | DRG 378 ==
LOC: ED 15:02 → EDHOLD 16:47 → CCU 17:30 → MED 05-11 16:45
PROVIDERS: ADMIT Internal Medicine; ATTEND Internal Medicine
PROC: 30233N1 Transfusion of Nonautologous Red Blood Cells into Peripheral Vein, Percutaneous Approach (ICD-10-PCS; 2016-05-09)
PROC: 0DB68ZX Excision of Stomach, Via Natural or Artificial Opening Endoscopic, Diagnostic (ICD-10-PCS; principal; 2016-05-10 12:03)
DX: K92.2 Gastrointestinal hemorrhage, unspecified (principal); D62 Acute posthemorrhagic anemia; E87.0 Hyperosmolality and hypernatremia; E87.2 Acidosis; K29.00 Acute gastritis without bleeding; K25.3 Acute gastric ulcer without hemorrhage or perforation; K44.9 Diaphragmatic hernia without obstruction or gangrene; F41.9 Anxiety disorder, unspecified; I10 Essential (primary) hypertension; K21.9 Gastro-esophageal reflux disease without esophagitis; E78.5 Hyperlipidemia, unspecified; R73.9 Hyperglycemia, unspecified; G47.00 Insomnia, unspecified
CPT/HCPCS: 36415; 80048; 80053; 82607; 82746; 83036; 83540; 83550; 85018; 85025; 85610; 85730; 86850; 86900; 86901; 86920; 86922; 87081; 88305; 88342; 96374